=== PATIENT | male | born 1940 | race Caucasian/White ===

== ENCOUNTER 2018-12-28 19:14 | Inpatient (IN) | payer OTHER ==
[2018-12-28 19:45] VITALS: BMI 24.3
[2018-12-28] MEDS ORDERED: LOSARTAN POTASSIUM 50 MG TABLET (FP) PO ONE (20:24)
[2018-12-28] MEDS ORDERED: amLODIPine BESYLATE 5 MG TABLET (FP) PO ONE (20:24)
[2018-12-28] MEDS ORDERED: amLODIPine BESYLATE 5 MG TABLET (FP) ONE (20:38)
[2018-12-28] MEDS ORDERED: LOSARTAN POTASSIUM 50 MG TABLET (FP) ONE (20:39)
[2018-12-28 21:01] LABS: PH,URINE 7.5 (5.0-8.0); URINE APPEARANCE CLEAR; URINE BILIRUBIN NEGATIVE (NEGATIVE); URINE COLOR YELLOW; URINE GLUCOSE (UA) NEGATIVE (NEGATIVE); URINE KETONE TRACE (NEGATIVE); URINE LEUK ESTERASE NEGATIVE (NEGATIVE); URINE NITRITE NEGATIVE (NEGATIVE); URINE PROTEIN NEGATIVE (NEGATIVE); URINE UROBILINOGEN 0.2 mg/dL (0.2-1.0)
[2018-12-28 21:19] LABS: BASO % 1.1 % (0-2.0); EOS % 3.9 % (0-4.5); HEMATOCRIT 40.5 % (35.4-49); HEMOGLOBIN 13.5 GM/dL (11.7-16.9); LYMPH % 25.8 % (8-40); MCH 31.4 pg (25.7-33.7); MCHC 33.3 g/dl (32.0-35.9); MEAN CELL VOLUME 94.4 fl (80-96); MEAN PLT VOLUME 10.2 fl (7.5-11.1); MONO % 8.6 % (3.8-10.2); NEUT % 60.6 % (42.8-82.8); PLATELET COUNT 185 K/MM3 (134-434); RBC 4.29 M/mm3 (4.00-5.60); RDW 14.8 % (11.9-15.9); WHITE BLOOD COUNT 6.1 K/mm3 (4.0-10.0)
[2018-12-28 21:33] LABS: COCAINE, UR NEGATIVE ng/ml (CUTOFF=300); METHADONE, UR NEGATIVE ng/ml (CUTOFF=300); OPIATES, URI NEGATIVE ng/ml (CUTOFF=300); PHENCYCLIDINE,URINE NEGATIVE ng/ml (CUTOFF=25); URINE AMPHETAMINES NEGATIVE ng/ml (CUTOFF=500); URINE BARBITURATES NEGATIVE ng/ml (CUTOFF=200); URINE BENZODIAZEPINES NEGATIVE ng/ml (CUTOFF=200)
[2018-12-28 21:42] LABS: ALK PHOS 71 U/L (45-117); ANION GAP 5 MMOL/L (8-16); BILIRUBIN,TOTAL 0.5 mg/dL (0.2-1); BLOOD UREA NITROGEN 17.8 mg/dL (7-18); CHLORIDE 108 mmol/L (98-107); CO2 27 mmol/L (21-32); GLUCOSE,RANDOM 84 mg/dL (74-106); POTASSIUM 4.1 mmol/L (3.5-5.1); SGOT/AST 16 U/L (15-37); SGPT/ALT 16 U/L (13-61); SODIUM 141 mmol/L (136-145); TOT PROT 6.5 g/dl (6.4-8.2)
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
--- NOTE | 2018-12-28 22:54 | PDOC ---
Attending Attestation - Resident Resident Name: Nimco Livingston - ED Attending Attestation I have performed the following: I have examined & evaluated the patient, The case was reviewed & discussed with the resident, I agree w/resident's findings & plan, Exceptions are as noted - HPI HPI: 12/28/18 22:54 Agree with resident HPI - Physicial Exam PE: 12/28/18 22:54 Agree with resident exam - Medical Decision Making 12/28/18 22:55 5 days of bizarre behavior in context of very high BP, maintaining alertness and level of consciousness Consider cva, mass, tox, electrolyte derangement, infection, less likely primary psych f/u labs, ct dispo per clinical course admit for further evaluation
[2018-12-28] MEDS ORDERED: hydrALAZINE HCL 20 MG/ML VIAL IVPUSH ONE (23:12)
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
[2018-12-28] MEDS ORDERED: hydrALAZINE HCL 20 MG/ML VIAL ONE (23:36)
[2018-12-29 01:38] LABS: INR 1.07 (0.83-1.09); PROTHROMBIN TIME (PATIENT) 12.6 SEC (9.7-13.0)
[2018-12-29 01:40] LABS: ACTIVATED PTT 29.4 SECONDS (25.2-36.5)
[2018-12-29] MEDS: HEPARIN NA (PORCINE) 5,000 UNITS/ML 1ML VIAL SQ SCH ×3 (08:30→21:19)
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
[2018-12-29] MEDS: amLODIPine BESYLATE 5 MG TABLET (FP) PO SCH (10:58)
[2018-12-29] MEDS: LOSARTAN POTASSIUM 50 MG TABLET (FP) PO SCH (10:58)
[2018-12-29] MEDS: LEVOTHYROXINE NA 100 MCG TABLET (FP) PO SCH (10:58)
--- NOTE | 2018-12-29 13:03 | EKG ---
Test Reason : Blood Pressure : / mmHG Vent. Rate : 055 BPM Atrial Rate : 055 BPM P-R Int : 138 ms QRS Dur : 092 ms QT Int : 452 ms P-R-T Axes : 036 025 057 degrees QTc Int : 432 ms SINUS BRADYCARDIA WHEN COMPARED WITH ECG OF 21-JUL-2009 15:27, NO SIGNIFICANT CHANGE WAS FOUND Confirmed by NATACHA RASMUSSEN MD ([id number]) on 12/29/2018 1:03:03 PM Referred By: Confirmed By:NATACHA RASMUSSEN MD
[2018-12-29 13:40] LABS: CHOLESTEROL 177 mg/dL (50-200); HDL CHOLESTEROL 74 mg/dL (40-60); LDL CHOLESTEROL (ONLY SJRH) 91 mg/dL (5-100); TRIGLYCERIDES 56 mg/dL (0-150)
--- NOTE | 2018-12-29 15:49 | ECHO ---
Name: ROSIBEL, KIARRA Exam:Adult Echocardiogram Study Date: 12/29/2018 03:17 PM Age: 78 yrs Reason For Study: Hypertension Height: 70 in Weight: 170 lb BSA: 1.9 m2 MMode/2D Measurements & Calculations IVSd: 1.4 cm Ao root diam: 3.0 cm LVIDd: 4.2 cm LA dimension: 2.8 cm LVIDs: 3.2 cm ACS: 1.7 cm LVPWd: 1.1 cm EDV(Teich): 77.9 ml LVOT diam: 2.0 cm ESV(Teich): 40.6 ml RV S Adan: 18.2 cm/sec Doppler Measurements & Calculations MV E max adan: 66.6 cm/sec Ao V2 max: 138.5 cm/sec MV A max adan: 68.1 cm/sec Ao max P.7 mmHg MV E/A: 0.98 Ao V2 mean: 93.6 cm/sec MV dec time: 0.30 sec Ao mean P.9 mmHg Ao V2 VTI: 27.0 cm JENNIFER(I,D): 2.5 cm2 JENNIFER(V,D): 2.1 cm2 LV V1 max P.4 mmHg SV(LVOT): 68.5 ml LV V1 mean P.6 mmHg LV V1 max: 92.3 cm/sec LV V1 mean: 59.0 cm/sec LV V1 VTI: 22.0 cm TR max adan: 254.8 cm/sec Med Peak E' Adan: 5.0 cm/sec TR max P.3 mmHg Med E/e': 13.4 Lat Peak E' Adan: 7.7 cm/sec Lat E/e': 8.7 Left Ventricle There is mild concentric left ventricular hypertrophy. Left ventricular systolic function is normal. Ejection Fraction = 55-60%. The transmitral spectral Doppler flow pattern is suggestive of impaired LV relaxat ion. Right Ventricle The right ventricle is normal in size and function. Atria The left atrium is borderline dilated. Right atrial size is normal. Mitral Valve The mitral valve is normal in structure and function. There is no mitral valve stenosis. There is tra ce to mild mitral regurgitation. Tricuspid Valve The tricuspid valve is normal in structure and function. There is mild tricuspid regurgitation. Right ventricular systolic pressure is normal. Aortic Valve The aortic valve opens well. No hemodynamically significant valvular aortic stenosis. No aortic regur gitation is present. Pulmonic Valve The pulmonic valve is not well seen, but is grossly normal. There is no pulmonic valvular stenosis. T here is no pulmonic valvular regurgitation. Great Vessels The aortic root is normal size. Pericardium/Pleura There is no pericardial effusion. Interpretation Summary There is mild concentric left ventricular hypertrophy. The transmitral spectral Doppler flow pattern is suggestive of impaired LV relaxation. Left ventricular systolic function is normal. Ejection Fraction = 55-60%. The right ventricle is normal in size and function. The left atrium is borderline dilated. There is trace to mild mitral regurgitation. There is mild tricuspid regurgitation. Right ventricular systolic pressure is normal. There is no pericardial effusion. MD Ludwig *Larisa 12/29/2018 03:48 PM
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
[2018-12-30] MEDS: HEPARIN NA (PORCINE) 5,000 UNITS/ML 1ML VIAL SQ SCH ×3 (05:44→21:01)
[2018-12-30] MEDS: LEVOTHYROXINE NA 100 MCG TABLET (FP) PO SCH (06:03)
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
[2018-12-30 09:59] LABS: HEMATOCRIT 39.2 % (35.4-49); HEMOGLOBIN 13.2 GM/dL (11.7-16.9); MCH 31.8 pg (25.7-33.7); MCHC 33.7 g/dl (32.0-35.9); MEAN CELL VOLUME 94.4 fl (80-96); MEAN PLT VOLUME 9.8 fl (7.5-11.1); PLATELET COUNT 161 K/MM3 (134-434); RBC 4.15 M/mm3 (4.00-5.60); RDW 14.7 % (11.9-15.9)
[2018-12-30] MEDS: amLODIPine BESYLATE 5 MG TABLET (FP) PO SCH (10:02)
[2018-12-30] MEDS: LOSARTAN POTASSIUM 50 MG TABLET (FP) PO SCH (10:02)
[2018-12-30 10:27] LABS: ALBUMIN 3.5 g/dl (3.4-5.0); BILIRUBIN,TOTAL 0.6 mg/dL (0.2-1); BLOOD UREA NITROGEN 14.2 mg/dL (7-18); CALCIUM 8.7 mg/dL (8.5-10.1); CREATININE 0.9 mg/dL (0.55-1.3); MAGNESIUM 2.2 mg/dL (1.8-2.4); PHOSPHOROUS 3.7 mg/dL (2.5-4.9); POTASSIUM 3.8 mmol/L (3.5-5.1); TOT PROT 5.9 g/dl (6.4-8.2)
[2018-12-30] MEDS: MEMANTINE HCL 5 MG TABLET (UD) PO SCH (21:00)
[2018-12-31] MEDS: HEPARIN NA (PORCINE) 5,000 UNITS/ML 1ML VIAL SQ SCH ×3 (05:00→21:00)
[2018-12-31] MEDS: LEVOTHYROXINE NA 100 MCG TABLET (FP) PO SCH (06:16)
--- NOTE | 2018-12-31 09:58 | PN ---
Physical Exam: SUBJECTIVE: Patient seen and examined. He says he knows he is confused. Otherwise he has no complaints. OBJECTIVE: Vital Signs Period Temp Pulse Resp BP Sys/Peralta Pulse Ox Last 24 Hr 97.2 F-98.3 F 55-67 18-20 127-150/67-89 98 GENERAL: The patient is awake, alert, and fully oriented, in no acute distress. LUNGS: Breath sounds equal, clear to auscultation bilaterally, no wheezes, no crackles, no accessory muscle use. HEART: Regular rate and rhythm, S1, S2 without murmur, rub or gallop. ABDOMEN: Soft, nontender, nondistended, normoactive bowel sounds, no guarding, no rebound, no hepatosplenomegaly, no masses. EXTREMITIES: 2+ pulses, warm, well-perfused, no edema. Laboratory Results - last 24 hr 12/30/18 12/30/18 07:48 07:48 WBC 5.0 RBC 4.15 Hgb 13.2 Hct 39.2 MCV 94.4 MCH 31.8 MCHC 33.7 RDW 14.7 Plt Count 161 MPV 9.8 Sodium 142 Potassium 3.8 Chloride 109 H Carbon Dioxide 27 Anion Gap 6 L BUN 14.2 Creatinine 0.9 Est GFR (CKD-EPI)AfAm 95.15 Est GFR (CKD-EPI)NonAf 82.09 Random Glucose 74 Calcium 8.7 Phosphorus 3.7 Magnesium 2.2 Total Bilirubin 0.6 AST 12 L ALT 10 L Alkaline Phosphatase 68 Total Protein 5.9 L Albumin 3.5 Active Medications Generic Name Dose Route Start Last Admin Trade Name Freq PRN Reason Stop Dose Admin Amlodipine Besylate 5 mg 12/29/18 10:00 12/30/18 10:02 Norvasc - PO 5 mg DAILY SILVINO Administration Aspirin 81 mg 12/31/18 10:00 Asa - PO DAILY SILVINO Heparin Sodium (Porcine) 5,000 unit 12/29/18 06:00 12/31/18 05:00 Heparin - SQ Not Given TID SILVINO Levothyroxine Sodium 100 mcg 12/29/18 07:00 12/31/18 06:16 Synthroid - PO 100 mcg DAILY@0700 SILVINO Administration Losartan Potassium 50 mg 12/29/18 10:00 12/30/18 10:02 Cozaar - PO 50 mg DAILY SILVINO Administration Memantine 5 mg 12/30/18 22:00 12/30/18 21:00 Namenda - PO 5 mg BID SILVINO Administration ASSESSMENT/PLAN: This is a 78 year old man with a history of HTN, hypothyroidism who presented to the ED with altered mental status. 1. Dementia with paranoia - Continue Namenda - MRI of brain not done because of possibility he has metal in his body 2. s/p fall - Possible syncope - Carotid dopplers show bilateral small plaques with no hemodynamically significant stenosis - Echo ordered - EEG as outpatient 3. Hypertension - Continue Cozaar, Norvasc 4. Hypothyroidism - Continue Synthroid Visit type - Emergency Visit Emergency Visit: Yes ED Registration Date: 12/28/18 Care time: The patient presented to the Emergency Department on the above date and was hospitalized for further evaluation of their emergent condition. - New Patient This patient is new to me today: No - Critical Care Critical Care patient: No - Discharge Referral Referred to [facility] No
[2018-12-31] MEDS: LOSARTAN POTASSIUM 50 MG TABLET (FP) PO SCH (10:34)
[2018-12-31] MEDS: MEMANTINE HCL 5 MG TABLET (UD) PO SCH ×2 (10:34→21:01)
[2018-12-31] MEDS: ASPIRIN 81 MG CHEWABLE TABLETS PO SCH (10:34)
[2018-12-31] MEDS: amLODIPine BESYLATE 5 MG TABLET (FP) PO SCH (10:35)
[2019-01-01] MEDS: HEPARIN NA (PORCINE) 5,000 UNITS/ML 1ML VIAL SQ SCH ×2 (05:01→13:49)
[2019-01-01] MEDS: LEVOTHYROXINE NA 100 MCG TABLET (FP) PO SCH (05:59)
[2019-01-01 08:21] LABS: HEMATOCRIT 37.9 % (35.4-49); HEMOGLOBIN 12.6 GM/dL (11.7-16.9); MCH 31.6 pg (25.7-33.7); MCHC 33.2 g/dl (32.0-35.9); MEAN CELL VOLUME 95.3 fl (80-96); MEAN PLT VOLUME 9.9 fl (7.5-11.1); PLATELET COUNT 157 K/MM3 (134-434); RBC 3.98 M/mm3 (4.00-5.60); RDW 14.7 % (11.9-15.9); WHITE BLOOD COUNT 5.6 K/mm3 (4.0-10.0)
[2019-01-01 08:50] LABS: BLOOD UREA NITROGEN 14.9 mg/dL (7-18); CALCIUM 8.5 mg/dL (8.5-10.1); POTASSIUM 3.9 mmol/L (3.5-5.1)
[2019-01-01] MEDS: LOSARTAN POTASSIUM 50 MG TABLET (FP) PO SCH (09:07)
[2019-01-01] MEDS: amLODIPine BESYLATE 5 MG TABLET (FP) PO SCH (09:07)
[2019-01-01] MEDS: ASPIRIN 81 MG CHEWABLE TABLETS PO SCH (09:07)
[2019-01-01] MEDS: MEMANTINE HCL 5 MG TABLET (UD) PO SCH (09:07)
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
[2019-01-01 14:02] VITALS: BP 115/75; PULSE 68; TEMP 98.2
== END 2019-01-01 14:50 | disposition home or self-care (01) | DRG 884 ==
LOC: JER 19:14 → JERBED 22:57 → J7W 12-29 07:46
PROVIDERS: ADMIT Internal Medicine; ATTEND Internal Medicine
DX: F03.91 Unspecified dementia, unspecified severity, with behavioral disturbance (principal); G93.41 Metabolic encephalopathy; I10 Essential (primary) hypertension; E03.9 Hypothyroidism, unspecified; R00.1 Bradycardia, unspecified; W19.XXXA Unspecified fall, initial encounter; F22 Delusional disorders; R55 Syncope and collapse; W18.30XA Fall on same level, unspecified, initial encounter; Y92.098 Other place in other non-institutional residence as the place of occurrence of the external cause
CPT/HCPCS: 36415; 70450-TC; 71046-TC-FY; 80048; 80053; 80061; 80307; 81003; 82140; 82550; 82607; 82746; 83036; 83721; 83735; 84100; 84439; 84443; 84484; 85025; 85027; 85610; 85651; 85730; 86140; 86593; 87040; 87086; 93005; 93010; 93306-TC; 93880-TC; 97116-GP; 97161-GP; 99284-25; J1644

== ENCOUNTER 2022-05-06 14:08 | Inpatient (IN) | payer OTHER ==
[2022-05-06 14:26] VITALS: BMI 22.0
[2022-05-06 16:08] LABS: BASO % 0.7 % (0-2.0); EOS % 4.5 % (0-4.5); HEMATOCRIT 35.4 % (35.4-49); LYMPH % 12.8 % (8-40); MCH 32.1 pg (25.7-33.7); MCHC 33.9 g/dl (32.0-35.9); MEAN CELL VOLUME 94.8 fl (80-96); MEAN PLT VOLUME 9.1 fl (7.5-11.1); MONO % 8.1 % (3.8-10.2); NEUT % 73.9 % (42.8-82.8); PLATELET COUNT 215 10^3/uL (134-434); RBC 3.73 M/mm3 (4.00-5.60); WHITE BLOOD COUNT 7.2 K/mm3 (4.0-10.0)
[2022-05-06 16:52] LABS: CALCIUM 8.1 mg/dL (8.5-10.1)
[2022-05-06 16:53] LABS: BLOOD UREA NITROGEN 19.6 mg/dL (7-18)
[2022-05-06 16:58] LABS: BILIRUBIN,TOTAL 0.8 mg/dL (0.2-1); TOT PROT 6.3 g/dl (6.4-8.2)
[2022-05-06] MEDS ORDERED: PIPERACILLIN/TAZOB 4.5 GM 4.5 GM in DEXTROSE 5%-WATER 100 ML IVPB ONE (17:38)
[2022-05-06] MEDS ORDERED: VANCOMYCIN 1 GM in D5W (PRE-DOCKED) 1,000 MG/250 ML IVPB ONE (17:38)
[2022-05-06 17:46] LABS: ERYTHROCYTE SEDIMENTATION RATE 57 mm/hr (0-20)
[2022-05-06] MEDS ORDERED: PIPERACILLIN/TAZOB 4.5 GM 4.5 GM/100 ML BAG IVPB ONE (18:00)
[2022-05-06] MEDS ORDERED: VANCOMYCIN/WATER FOR INJ (PEG) 1,000 MG/200 ML BAG IVPB ONE (19:06)
[2022-05-06] MEDS ORDERED: VANCOMYCIN 1,000 MG in DEXTROSE 5%-WATER - 250 ML IVPB SCH (20:30)
[2022-05-06] MEDS: SODIUM CHLORIDE 1,000 ML IV SCH (20:35)
[2022-05-06] MEDS ORDERED: PIPERACILLIN/TAZOB 3.375 GM 3.375 GM in DEXTROSE 5%-WATER - 50 ML IVPB SCH (20:45)
[2022-05-06] MEDS ORDERED: ACETAMINOPHEN 1000 MG/100 ML BAG IVPB PRN (21:11)
[2022-05-07] MEDS: PIPERACILLIN/TAZOB 3.375 GM 3.375 GM in DEXTROSE 5%-WATER - 50 ML IVPB SCH ×3 (01:28→17:13)
[2022-05-07] MEDS: CARBIDOPA/LEVODOPA 25/100 TABLET (FP) PO SCH ×3 (06:19→17:13)
[2022-05-07] MEDS: LEVOTHYROXINE NA 100 MCG TABLET (FP) PO SCH (06:19)
[2022-05-07] MEDS ORDERED: VANCOMYCIN/WATER FOR INJ (PEG) 1,000 MG/200 ML BAG IVPB SCH (08:00)
[2022-05-07 09:06] LABS: HEMATOCRIT 34.3 % (35.4-49); HEMOGLOBIN 11.7 GM/dL (11.7-16.9); MCH 32.2 pg (25.7-33.7); MCHC 34.2 g/dl (32.0-35.9); MEAN CELL VOLUME 94.4 fl (80-96); MEAN PLT VOLUME 9.3 fl (7.5-11.1); PLATELET COUNT 211 10^3/uL (134-434); RBC 3.63 M/mm3 (4.00-5.60); RDW 13.6 % (11.9-15.9); WHITE BLOOD COUNT 7.2 K/mm3 (4.0-10.0)
[2022-05-07 09:19] LABS: CALCIUM 8.2 mg/dL (8.5-10.1)
[2022-05-07 09:20] LABS: BLOOD UREA NITROGEN 18.2 mg/dL (7-18); MAGNESIUM 2.3 mg/dL (1.8-2.4)
[2022-05-07 09:23] LABS: CREATININE 0.9 mg/dL (0.55-1.3); PHOSPHOROUS 2.7 mg/dL (2.5-4.9)
[2022-05-07] MEDS: ENOXAPARIN NA (PORCINE) 40 MG/0.4 ML DISP.SYRIN SQ SCH (09:23)
[2022-05-07] MEDS: LOSARTAN POTASSIUM 50 MG TABLET PO SCH (09:24)
[2022-05-07] MEDS: FUROSEMIDE 20 MG TABLET (FP) PO SCH (09:24)
[2022-05-07] MEDS ORDERED: PATIENT'S OWN MEDICATION (NON-FORMULARY) (Rivastigmine 1 EACH Patch.Td24) TD SCH (10:00)
[2022-05-07] MEDS ORDERED: MAGNESIUM HYDROX 2400MG/30ML ORAL SUSPENSION 30 ML CUP PO ONE (15:10)
[2022-05-07] MEDS ORDERED: PIPERACILLIN/TAZOBACTAM 3.375 GM VIAL IVPB ONE (17:17)
[2022-05-07] MEDS: DONEPEZIL HCL 10 MG TABLET (FP) PO SCH (21:22)
[2022-05-07] MEDS: SODIUM CHLORIDE 1,000 ML IV SCH (21:22)
[2022-05-08] MEDS: PIPERACILLIN/TAZOB 3.375 GM 3.375 GM in DEXTROSE 5%-WATER - 50 ML IVPB SCH ×3 (02:39→17:24)
[2022-05-08] MEDS: CARBIDOPA/LEVODOPA 25/100 TABLET (FP) PO SCH ×3 (06:12→17:23)
[2022-05-08] MEDS: LEVOTHYROXINE NA 100 MCG TABLET (FP) PO SCH (06:12)
[2022-05-08 08:49] LABS: HEMATOCRIT 33.2 % (35.4-49); HEMOGLOBIN 11.2 GM/dL (11.7-16.9); MCH 31.8 pg (25.7-33.7); MCHC 33.7 g/dl (32.0-35.9); MEAN CELL VOLUME 94.3 fl (80-96); MEAN PLT VOLUME 8.9 fl (7.5-11.1); PLATELET COUNT 193 10^3/uL (134-434); RBC 3.52 M/mm3 (4.00-5.60); RDW 13.9 % (11.9-15.9); WHITE BLOOD COUNT 6.2 K/mm3 (4.0-10.0)
[2022-05-08 09:07] LABS: CALCIUM 8.2 mg/dL (8.5-10.1)
[2022-05-08 09:08] LABS: BLOOD UREA NITROGEN 17.2 mg/dL (7-18); MAGNESIUM 2.4 mg/dL (1.8-2.4)
[2022-05-08 09:11] LABS: CREATININE 0.8 mg/dL (0.55-1.3); PHOSPHOROUS 3.1 mg/dL (2.5-4.9)
[2022-05-08] MEDS: ENOXAPARIN NA (PORCINE) 40 MG/0.4 ML DISP.SYRIN SQ SCH (10:31)
[2022-05-08] MEDS: LOSARTAN POTASSIUM 50 MG TABLET PO SCH (10:31)
[2022-05-08] MEDS: FUROSEMIDE 20 MG TABLET (FP) PO SCH (10:31)
[2022-05-08] MEDS: DONEPEZIL HCL 10 MG TABLET (FP) PO SCH (22:54)
[2022-05-09] MEDS: PIPERACILLIN/TAZOB 3.375 GM 3.375 GM in DEXTROSE 5%-WATER - 50 ML IVPB SCH ×3 (02:29→17:49)
[2022-05-09] MEDS: CARBIDOPA/LEVODOPA 25/100 TABLET (FP) PO SCH ×3 (06:21→17:48)
[2022-05-09] MEDS: LEVOTHYROXINE NA 100 MCG TABLET (FP) PO SCH (06:21)
[2022-05-09] MEDS: AMINO ACIDS/PROTEIN HYDROLYS 30 ML LIQUID.PKT PO SCH (08:32)
[2022-05-09 09:19] LABS: HEMATOCRIT 33.7 % (35.4-49); HEMOGLOBIN 11.5 GM/dL (11.7-16.9); MCH 32.1 pg (25.7-33.7); MCHC 34.1 g/dl (32.0-35.9); MEAN CELL VOLUME 94.3 fl (80-96); PLATELET COUNT 199 10^3/uL (134-434); RBC 3.57 M/mm3 (4.00-5.60); RDW 13.8 % (11.9-15.9); WHITE BLOOD COUNT 6.5 K/mm3 (4.0-10.0)
[2022-05-09 09:42] LABS: BLOOD UREA NITROGEN 15.5 mg/dL (7-18); CALCIUM 8.1 mg/dL (8.5-10.1); MAGNESIUM 2.2 mg/dL (1.8-2.4)
[2022-05-09 09:45] LABS: CREATININE 0.9 mg/dL (0.55-1.3); PHOSPHOROUS 3.4 mg/dL (2.5-4.9)
[2022-05-09] MEDS: FUROSEMIDE 20 MG TABLET (FP) PO SCH (10:11)
[2022-05-09] MEDS: ASCORBIC ACID 500 MG TABLET (FP) PO SCH (10:11)
[2022-05-09] MEDS: LOSARTAN POTASSIUM 50 MG TABLET PO SCH (10:11)
[2022-05-09] MEDS: ENOXAPARIN NA (PORCINE) 40 MG/0.4 ML DISP.SYRIN SQ SCH (10:12)
[2022-05-09] MEDS: MULTIVITAMINS (DAILY MVI) TABLET (FP) PO SCH (10:12)
[2022-05-09 13:20] LABS: URINE APPEARANCE CLEAR; URINE BILIRUBIN NEGATIVE (NEGATIVE); URINE COLOR YELLOW; URINE GLUCOSE (UA) NEGATIVE (NEGATIVE); URINE KETONE NEGATIVE (NEGATIVE); URINE LEUK ESTERASE NEGATIVE (NEGATIVE); URINE NITRITE NEGATIVE (NEGATIVE); URINE PROTEIN NEGATIVE (NEGATIVE)
[2022-05-09] MEDS: DONEPEZIL HCL 10 MG TABLET (FP) PO SCH (21:37)
[2022-05-10] MEDS: PIPERACILLIN/TAZOB 3.375 GM 3.375 GM in DEXTROSE 5%-WATER - 50 ML IVPB SCH ×3 (01:27→17:29)
[2022-05-10] MEDS: CARBIDOPA/LEVODOPA 25/100 TABLET (FP) PO SCH ×3 (06:38→16:33)
[2022-05-10] MEDS: LEVOTHYROXINE NA 100 MCG TABLET (FP) PO SCH (06:38)
[2022-05-10 08:40] LABS: HEMATOCRIT 34.6 % (35.4-49); MCH 32.5 pg (25.7-33.7); MCHC 34.8 g/dl (32.0-35.9); MEAN CELL VOLUME 93.4 fl (80-96); MEAN PLT VOLUME 8.8 fl (7.5-11.1); PLATELET COUNT 211 10^3/uL (134-434); RDW 13.9 % (11.9-15.9); WHITE BLOOD COUNT 6.2 K/mm3 (4.0-10.0)
[2022-05-10] MEDS: AMINO ACIDS/PROTEIN HYDROLYS 30 ML LIQUID.PKT PO SCH (08:50)
[2022-05-10 09:19] LABS: BLOOD UREA NITROGEN 16.4 mg/dL (7-18); CALCIUM 8.2 mg/dL (8.5-10.1); MAGNESIUM 2.3 mg/dL (1.8-2.4)
[2022-05-10 09:21] LABS: CREATININE 0.9 mg/dL (0.55-1.3)
[2022-05-10 09:24] LABS: PHOSPHOROUS 3.3 mg/dL (2.5-4.9)
[2022-05-10] MEDS: MULTIVITAMINS (DAILY MVI) TABLET (FP) PO SCH (10:10)
[2022-05-10] MEDS: ASCORBIC ACID 500 MG TABLET (FP) PO SCH (10:10)
[2022-05-10] MEDS: ENOXAPARIN NA (PORCINE) 40 MG/0.4 ML DISP.SYRIN SQ SCH (10:10)
[2022-05-10] MEDS: FUROSEMIDE 20 MG TABLET (FP) PO SCH (10:10)
[2022-05-10] MEDS: LOSARTAN POTASSIUM 50 MG TABLET PO SCH (10:10)
[2022-05-10] MEDS: DONEPEZIL HCL 10 MG TABLET (FP) PO SCH (21:04)
[2022-05-11] MEDS: PIPERACILLIN/TAZOB 3.375 GM 3.375 GM in DEXTROSE 5%-WATER - 50 ML IVPB SCH ×3 (02:42→17:06)
[2022-05-11] MEDS: LEVOTHYROXINE NA 100 MCG TABLET (FP) PO SCH (06:16)
[2022-05-11] MEDS: CARBIDOPA/LEVODOPA 25/100 TABLET (FP) PO SCH ×3 (06:16→17:06)
[2022-05-11] MEDS: AMINO ACIDS/PROTEIN HYDROLYS 30 ML LIQUID.PKT PO SCH (08:57)
[2022-05-11] MEDS: LOSARTAN POTASSIUM 50 MG TABLET PO SCH (09:25)
[2022-05-11] MEDS: MULTIVITAMINS (DAILY MVI) TABLET (FP) PO SCH (09:25)
[2022-05-11] MEDS: ASCORBIC ACID 500 MG TABLET (FP) PO SCH (09:25)
[2022-05-11] MEDS: FUROSEMIDE 20 MG TABLET (FP) PO SCH (09:26)
[2022-05-11] MEDS: ENOXAPARIN NA (PORCINE) 40 MG/0.4 ML DISP.SYRIN SQ SCH (09:26)
[2022-05-11 09:47] LABS: HEMATOCRIT 37.1 % (35.4-49); HEMOGLOBIN 12.6 GM/dL (11.7-16.9); MCH 32.1 pg (25.7-33.7); MCHC 34.1 g/dl (32.0-35.9); MEAN CELL VOLUME 94.1 fl (80-96); MEAN PLT VOLUME 8.8 fl (7.5-11.1); PLATELET COUNT 226 10^3/uL (134-434); RBC 3.94 M/mm3 (4.00-5.60); RDW 13.9 % (11.9-15.9)
[2022-05-11 10:04] LABS: CALCIUM 8.7 mg/dL (8.5-10.1)
[2022-05-11 10:05] LABS: ALBUMIN 2.8 g/dl (3.4-5.0); BLOOD UREA NITROGEN 19.2 mg/dL (7-18); MAGNESIUM 2.4 mg/dL (1.8-2.4)
[2022-05-11 10:08] LABS: CREATININE 0.9 mg/dL (0.55-1.3)
[2022-05-11 10:09] LABS: BILIRUBIN,TOTAL 0.3 mg/dL (0.2-1)
[2022-05-11] MEDS: DONEPEZIL HCL 10 MG TABLET (FP) PO SCH (22:09)
[2022-05-12] MEDS: PIPERACILLIN/TAZOB 3.375 GM 3.375 GM in DEXTROSE 5%-WATER - 50 ML IVPB SCH ×2 (01:53→09:18)
[2022-05-12] MEDS: CARBIDOPA/LEVODOPA 25/100 TABLET (FP) PO SCH ×3 (06:43→17:51)
[2022-05-12] MEDS: LEVOTHYROXINE NA 100 MCG TABLET (FP) PO SCH (06:43)
[2022-05-12] MEDS: AMINO ACIDS/PROTEIN HYDROLYS 30 ML LIQUID.PKT PO SCH (09:19)
[2022-05-12] MEDS: ENOXAPARIN NA (PORCINE) 40 MG/0.4 ML DISP.SYRIN SQ SCH (09:19)
[2022-05-12] MEDS: ASCORBIC ACID 500 MG TABLET (FP) PO SCH (09:20)
[2022-05-12] MEDS: MULTIVITAMINS (DAILY MVI) TABLET (FP) PO SCH (09:20)
[2022-05-12] MEDS: FUROSEMIDE 20 MG TABLET (FP) PO SCH (09:20)
[2022-05-12] MEDS: LOSARTAN POTASSIUM 50 MG TABLET PO SCH (09:20)
[2022-05-12 09:38] LABS: HEMATOCRIT 36.7 % (35.4-49); HEMOGLOBIN 12.5 GM/dL (11.7-16.9); MCHC 34.1 g/dl (32.0-35.9); MEAN CELL VOLUME 93.9 fl (80-96); MEAN PLT VOLUME 9.1 fl (7.5-11.1); PLATELET COUNT 227 10^3/uL (134-434); RDW 13.8 % (11.9-15.9); WHITE BLOOD COUNT 6.7 K/mm3 (4.0-10.0)
[2022-05-12 09:58] LABS: CALCIUM 8.5 mg/dL (8.5-10.1)
[2022-05-12 09:59] LABS: BLOOD UREA NITROGEN 16.5 mg/dL (7-18); MAGNESIUM 2.2 mg/dL (1.8-2.4)
[2022-05-12 10:01] LABS: PHOSPHOROUS 3.2 mg/dL (2.5-4.9)
[2022-05-12 10:02] LABS: CREATININE 1.1 mg/dL (0.55-1.3)
[2022-05-12] MEDS: DONEPEZIL HCL 10 MG TABLET (FP) PO SCH (22:10)
[2022-05-13] MEDS: LEVOTHYROXINE NA 100 MCG TABLET (FP) PO SCH (06:29)
[2022-05-13] MEDS: CARBIDOPA/LEVODOPA 25/100 TABLET (FP) PO SCH ×3 (06:29→17:48)
[2022-05-13] MEDS: FUROSEMIDE 20 MG TABLET (FP) PO SCH (09:51)
[2022-05-13] MEDS: ASCORBIC ACID 500 MG TABLET (FP) PO SCH (09:51)
[2022-05-13] MEDS: AMINO ACIDS/PROTEIN HYDROLYS 30 ML LIQUID.PKT PO SCH (09:51)
[2022-05-13] MEDS: ENOXAPARIN NA (PORCINE) 40 MG/0.4 ML DISP.SYRIN SQ SCH (09:51)
[2022-05-13] MEDS: LOSARTAN POTASSIUM 50 MG TABLET PO SCH (09:52)
[2022-05-13] MEDS: MULTIVITAMINS (DAILY MVI) TABLET (FP) PO SCH (09:52)
[2022-05-13 11:04] VITALS: RESP 18
[2022-05-13 17:59] VITALS: BP 145/84; PULSE 51; TEMP 98.3
== END 2022-05-13 19:30 | DRG 603 ==
LOC: JER 14:08 → JERBED 18:24 → J6S 21:14 → J7W 05-12 19:50
PROVIDERS: ADMIT Internal Medicine; ATTEND Internal Medicine
DX: L03.115 Cellulitis of right lower limb (principal); L03.116 Cellulitis of left lower limb; I10 Essential (primary) hypertension; E03.9 Hypothyroidism, unspecified; G20 Parkinson's disease; M51.34 Other intervertebral disc degeneration, thoracic region; R00.1 Bradycardia, unspecified; R73.9 Hyperglycemia, unspecified; M71.21 Synovial cyst of popliteal space [Baker], right knee; M85.88 Other specified disorders of bone density and structure, other site; B95.61 Methicillin susceptible Staphylococcus aureus infection as the cause of diseases classified elsewhere; F03.90 Unspecified dementia, unspecified severity, without behavioral disturbance, psychotic disturbance, mood disturbance, and anxiety
CPT/HCPCS: 0241U-QW; 36415; 73630-TC-LT; 73630-TC-RT-FY; 73700-TC-RT; 80048; 80053; 81003; 83036; 83605; 83735; 83880; 84100; 84439; 84443; 85025; 85027; 85651; 86140; 87040; 87070; 87081; 87186; 87205; 93005; 93010; 93306-TC; 93970-TC; 97116-GP; 97162-GP; 99285-25

== ENCOUNTER 2022-05-28 14:08 | Emergency (ER) | payer OTHER ==
[2022-05-28 14:36] VITALS: BP 141/77; PULSE 56; RESP 18; TEMP 98.2; BMI 22.8
[2022-05-28] MEDS ORDERED: BACITRACIN 0.9 GM PACKET TP ONE (14:45)
[2022-05-28] MEDS ORDERED: BACITRACIN ZINC 15 GM TUBE TOPICAL OINTMENT ONE (14:48)
[2022-05-28] MEDS ORDERED: RAPID SEQUENCE INTUBATION KIT NR ONE (15:52)
== END 2022-05-29 00:02 ==
LOC: JER 14:08
DX: Z48.00 Encounter for change or removal of nonsurgical wound dressing (principal)
CPT/HCPCS: 99281-25

== ENCOUNTER 2022-11-21 21:10 | Emergency (ER) | payer OTHER ==
[2022-11-21 21:16] VITALS: BP 146/84; PULSE 58; RESP 16; TEMP 97.8; BMI 17.4
[2022-11-21] MEDS ORDERED: METOCLOPRAMIDE HCL INJECTION 10 MG/2 ML VIAL IVPUSH ONE (22:05)
[2022-11-21] MEDS ORDERED: SODIUM CHLORIDE 0.9% 500 ML INFUS.BAG IV ONE (22:07)
[2022-11-21] MEDS ORDERED: METOCLOPRAMIDE HCL INJECTION 10 MG/2 ML VIAL ONE (22:23)
[2022-11-21 22:31] LABS: BASO % 1.2 % (0-2.0); EOS % 4.9 % (0-4.5); HEMATOCRIT 40.7 % (35.4-49); HEMOGLOBIN 13.6 GM/dL (11.7-16.9); LYMPH % 20.8 % (8-40); MCHC 33.5 g/dl (32.0-35.9); MEAN CELL VOLUME 92.8 fl (80-96); MEAN PLT VOLUME 9.4 fl (7.5-11.1); MONO % 9.1 % (3.8-10.2); PLATELET COUNT 194 10^3/uL (134-434); RBC 4.38 M/mm3 (4.00-5.60); WHITE BLOOD COUNT 5.6 K/mm3 (4.0-10.0)
[2022-11-21 22:41] LABS: INR 1.03 (0.83-1.09)
[2022-11-21 22:43] LABS: ACTIVATED PTT 28.2 SECONDS (25.2-36.5)
[2022-11-21 22:56] LABS: POTASSIUM 3.9 mmol/L (3.5-5.1)
[2022-11-21 22:58] LABS: BLOOD UREA NITROGEN 17.2 mg/dL (7-18); CALCIUM 8.6 mg/dL (8.5-10.1); MAGNESIUM 2.3 mg/dL (1.8-2.4)
[2022-11-21 22:59] LABS: ALBUMIN 3.6 g/dl (3.4-5.0)
[2022-11-21] MEDS ORDERED: ACETAMINOPHEN/CAFFEINE/BUTALBITAL 1 TAB PO ONE (22:59)
[2022-11-21 23:03] LABS: BILIRUBIN,TOTAL 0.7 mg/dL (0.2-1); TOT PROT 6.5 g/dl (6.4-8.2)
[2022-11-21] MEDS ORDERED: ACETAMINOPHEN/CAFFEINE/BUTALBITAL 1 TAB ONE (23:20)
[2022-11-22] MEDS ORDERED: LACTULOSE 20 GM/30 ML UDC (FOR ORAL USE ONLY) PO ONE (00:42)
[2022-11-22] MEDS ORDERED: FOLIC ACID INJECTION - 1 MG, THIAMINE HCL 100 MG, MULTIVIT INJECTION ADULT 10 ML in SOD... IVPB ONE (00:43)
[2022-11-22] MEDS ORDERED: POLYETHYLENE GLYCOL (HEALTHYLAX) 3350 17 GM PACKET PO SCH (00:45)
[2022-11-22] MEDS ORDERED: POLYETHYLENE GLYCOL (HEALTHYLAX) 3350 17 GM PACKET PO ONE (00:45)
[2022-11-22] MEDS ORDERED: LACTULOSE 20 GM/30 ML UDC (FOR ORAL USE ONLY) ONE (00:45)
[2022-11-22 00:57] LABS: PH,URINE 7.5 (5.0-8.0); URINE APPEARANCE CLEAR; URINE BILIRUBIN NEGATIVE (NEGATIVE); URINE COLOR YELLOW; URINE GLUCOSE (UA) NEGATIVE (NEGATIVE); URINE KETONE 1+ (NEGATIVE); URINE LEUK ESTERASE NEGATIVE (NEGATIVE); URINE NITRITE NEGATIVE (NEGATIVE); URINE PROTEIN NEGATIVE (NEGATIVE); URINE UROBILINOGEN 0.2 mg/dL (0.2-1.0)
== END 2022-11-22 04:02 | disposition home or self-care (01) ==
LOC: JER 21:10
PROC: 3E033GC Introduction of Other Therapeutic Substance into Peripheral Vein, Percutaneous Approach (ICD-10-PCS; 2022-11-21)
PROC: 3E033GC Introduction of Other Therapeutic Substance into Peripheral Vein, Percutaneous Approach (ICD-10-PCS; principal; 2022-11-22)
PROC: 3E033GC Introduction of Other Therapeutic Substance into Peripheral Vein, Percutaneous Approach (ICD-10-PCS; 2022-11-22)
PROC: 3E033GC Introduction of Other Therapeutic Substance into Peripheral Vein, Percutaneous Approach (ICD-10-PCS; 2022-11-22)
PROC: 3E033GC Introduction of Other Therapeutic Substance into Peripheral Vein, Percutaneous Approach (ICD-10-PCS; 2022-11-22)
PROC: 3E033GC Introduction of Other Therapeutic Substance into Peripheral Vein, Percutaneous Approach (ICD-10-PCS; 2022-11-22)
PROC: 3E033GC Introduction of Other Therapeutic Substance into Peripheral Vein, Percutaneous Approach (ICD-10-PCS; 2022-11-22)
PROC: 3E033GC Introduction of Other Therapeutic Substance into Peripheral Vein, Percutaneous Approach (ICD-10-PCS; 2022-11-22)
PROC: 3E033GC Introduction of Other Therapeutic Substance into Peripheral Vein, Percutaneous Approach (ICD-10-PCS; 2022-11-22)
DX: R51.9 Headache, unspecified (principal); K59.00 Constipation, unspecified; Z20.822 Contact with and (suspected) exposure to COVID-19
CPT/HCPCS: 0241U-QW; 36415; 70450-TC; 80053; 81003; 83735; 84484; 85025; 85610; 85730; 87086; 93005; 93010; 99285-25

== ENCOUNTER 2023-07-10 15:37 | Observation (INO) | payer OTHER ==
[2023-07-10 16:49] VITALS: BMI 20.7
[2023-07-10 17:10] LABS: EOS % 6.6 % (0-4.5); HEMATOCRIT 37.6 % (35.4-49); HEMOGLOBIN 12.6 GM/dL (11.7-16.9); LYMPH % 12.9 % (8-40); MCH 32.1 pg (25.7-33.7); MCHC 33.5 g/dl (32.0-35.9); MEAN PLT VOLUME 10.1 fl (7.5-11.1); MONO % 8.3 % (3.8-10.2); NEUT % 71.2 % (42.8-82.8); PLATELET COUNT 151 10^3/uL (134-434); RBC 3.92 M/mm3 (4.00-5.60); WHITE BLOOD COUNT 6.1 K/mm3 (4.0-10.0)
[2023-07-10 17:23] LABS: POTASSIUM 4.4 mmol/L (3.5-5.1)
[2023-07-10 17:26] LABS: CALCIUM 8.6 mg/dL (8.5-10.1)
[2023-07-10 17:27] LABS: ALBUMIN 3.5 g/dl (3.4-5.0); BLOOD UREA NITROGEN 25.5 mg/dL (7-18); MAGNESIUM 2.4 mg/dL (1.8-2.4)
[2023-07-10 17:31] LABS: BILIRUBIN,TOTAL 0.6 mg/dL (0.2-1)
[2023-07-10 17:32] LABS: TOT PROT 5.9 g/dl (6.4-8.2)
[2023-07-10 17:46] LABS: URINE APPEARANCE TURBID; URINE BILIRUBIN NEGATIVE (NEGATIVE); URINE COLOR YELLOW; URINE GLUCOSE (UA) NEGATIVE (NEGATIVE); URINE KETONE NEGATIVE (NEGATIVE); URINE LEUK ESTERASE NEGATIVE (NEGATIVE); URINE NITRITE NEGATIVE (NEGATIVE); URINE PROTEIN NEGATIVE (NEGATIVE); URINE UROBILINOGEN 0.2 mg/dL (0.2-1.0)
[2023-07-11] MEDS: BENZOCAINE/MENTH/CETYLPYRD CL 1 EACH LOZENGE MM PRN (03:26)
[2023-07-11 06:56] VITALS: RESP 18
[2023-07-11] MEDS: LEVOTHYROXINE NA 125 MCG TABLET (FP) PO SCH (08:24)
[2023-07-11 08:32] LABS: BASO % 0.6 % (0-2.0); EOS % 2.6 % (0-4.5); HEMATOCRIT 35.7 % (35.4-49); HEMOGLOBIN 12.2 GM/dL (11.7-16.9); MCH 32.6 pg (25.7-33.7); MCHC 34.1 g/dl (32.0-35.9); MEAN CELL VOLUME 95.6 fl (80-96); MEAN PLT VOLUME 9.3 fl (7.5-11.1); MONO % 6.4 % (3.8-10.2); NEUT % 84.4 % (42.8-82.8); PLATELET COUNT 128 10^3/uL (134-434); RBC 3.73 M/mm3 (4.00-5.60); WHITE BLOOD COUNT 8.4 K/mm3 (4.0-10.0)
[2023-07-11 08:50] LABS: MAGNESIUM 2.1 mg/dL (1.8-2.4)
[2023-07-11 08:52] LABS: PHOSPHOROUS 2.5 mg/dL (2.5-4.9); URIC ACID 4.7 mg/dL (2.6-7.2)
[2023-07-11] MEDS: CARBIDOPA/LEVODOPA 25/100 TABLET (FP) PO SCH (09:05)
[2023-07-11 09:23] LABS: POTASSIUM 3.8 mmol/L (3.5-5.1)
[2023-07-11 09:25] LABS: ALBUMIN 3.3 g/dl (3.4-5.0); BLOOD UREA NITROGEN 19.2 mg/dL (7-18); CALCIUM 8.3 mg/dL (8.5-10.1)
[2023-07-11 09:29] LABS: CREATININE 0.8 mg/dL (0.55-1.3)
[2023-07-11 09:30] LABS: BILIRUBIN,TOTAL 0.6 mg/dL (0.2-1); TOT PROT 5.5 g/dl (6.4-8.2)
[2023-07-11] MEDS: LOSARTAN POTASSIUM 50 MG TABLET PO SCH (12:42)
[2023-07-11] MEDS: ENOXAPARIN NA (PORCINE) 40 MG/0.4 ML DISP.SYRIN SQ SCH (12:42)
[2023-07-11] MEDS: FUROSEMIDE 20 MG TABLET (FP) PO SCH (17:36)
[2023-07-11] MEDS: RIVASTIGMINE 4.6 MG/24 HOURS TRANSDERMAL PATCH TD SCH (17:37)
[2023-07-11] MEDS: hydrALAZINE HCL 50 MG TABLET (FP) PO SCH (17:37)
[2023-07-11] MEDS: DONEPEZIL HCL 10 MG TABLET (FP) PO SCH (21:24)
[2023-07-12] MEDS: LEVOTHYROXINE NA 125 MCG TABLET (FP) PO SCH (06:00)
[2023-07-12 10:22] LABS: HEMOGLOBIN 12.5 GM/dL (11.7-16.9); MCH 32.1 pg (25.7-33.7); MCHC 32.9 g/dl (32.0-35.9); MEAN CELL VOLUME 97.4 fl (80-96); MEAN PLT VOLUME 10.1 fl (7.5-11.1); PLATELET COUNT 130 10^3/uL (134-434); WHITE BLOOD COUNT 8.5 K/mm3 (4.0-10.0)
[2023-07-12 10:41] LABS: CHLORIDE 106 mmol/L (98-107); POTASSIUM 3.5 mmol/L (3.5-5.1); SODIUM 139 mmol/L (136-145)
[2023-07-12 10:45] LABS: ALBUMIN 2.9 g/dl (3.4-5.0); ANION GAP 5 mmol/L (4-13); BLOOD UREA NITROGEN 25.5 mg/dL (7-18); CO2 28 mmol/L (21-32); GLUCOSE,RANDOM 121 mg/dL (74-106); MAGNESIUM 2.1 mg/dL (1.8-2.4)
[2023-07-12 10:48] LABS: CREATININE 1.1 mg/dL (0.55-1.3); PHOSPHOROUS 2.1 mg/dL (2.5-4.9); SGOT/AST 24 U/L (15-37)
[2023-07-12 10:49] LABS: BILIRUBIN,TOTAL 0.9 mg/dL (0.2-1); TOT PROT 5.3 g/dl (6.4-8.2)
[2023-07-12 10:51] LABS: ALK PHOS 52 U/L (45-117)
[2023-07-12 10:52] LABS: SGPT/ALT < 6 U/L (13-61)
[2023-07-12 15:22] LABS: CHOLESTEROL 139 mg/dL (50-200)
[2023-07-12 15:24] LABS: LDL CHOLESTEROL (ONLY SJRH) 45 mg/dL (5-100)
[2023-07-12 15:25] LABS: HDL CHOLESTEROL 87 mg/dL (40-60)
[2023-07-13] MEDS: POLYETHYLENE GLYCOL (HEALTHYLAX) 3350 17 GM PACKET PO SCH (11:23)
[2023-07-14 15:12] VITALS: BP 117/70; PULSE 62; TEMP 98.3
== END 2023-07-14 15:55 | disposition home or self-care (01) ==
LOC: JER 15:37 → INTOOBSV 20:23 → JERBED 20:23 → J6S 07-11 04:05
PROVIDERS: ADMIT Internal Medicine; ATTEND Internal Medicine
PROC: 3E023GC Introduction of Other Therapeutic Substance into Muscle, Percutaneous Approach (ICD-10-PCS; principal; 2023-07-10)
DX: F02.80 Dementia in other diseases classified elsewhere, unspecified severity, without behavioral disturbance, psychotic disturbance, mood disturbance, and anxiety (principal); R53.1 Weakness; Z86.73 Personal history of transient ischemic attack (TIA), and cerebral infarction without residual deficits; G20.A1 Parkinson's disease without dyskinesia, without mention of fluctuations; R00.1 Bradycardia, unspecified; E78.5 Hyperlipidemia, unspecified; I10 Essential (primary) hypertension; Z74.1 Need for assistance with personal care; E03.9 Hypothyroidism, unspecified; W18.39XA Other fall on same level, initial encounter; Y93.89 Activity, other specified; Y92.89 Other specified places as the place of occurrence of the external cause
CPT/HCPCS: 0241U-QW; 36415; 70450-TC; 71045-TC-FY; 73610-TC-LT-FY; 73610-TC-RT-FY; 73630-TC-LT; 73630-TC-RT-FY; 80053; 80061; 80307; 81003; 82306; 82553; 82607; 82746; 83735; 84100; 84439; 84443; 84481; 84484; 84550; 85025; 85027; 86780; 87086; 93005; 93010; 96372; 97116-GP; 97162-GP; 99285-25; G0378

== ENCOUNTER 2023-11-14 16:58 | Inpatient (IN) | payer OTHER ==
[2023-11-14] MEDS ORDERED: AZITHROMYCIN 500 MG VIAL IVPB ONE (17:51)
[2023-11-14] MEDS ORDERED: cefTRIAXone SODIUM 1 GM VIAL ONE (17:51)
[2023-11-14 18:13] LABS: HEMATOCRIT 44.2 % (35.4-49); HEMOGLOBIN 14.2 G/dL (11.7-16.9); MCHC 32.1 g/dl (32.0-35.9); MEAN CELL VOLUME 96.8 fl (80-96); MEAN PLT VOLUME 10.5 fl (7.5-11.1); PLATELET COUNT 108.3 10^3/uL (134-434); RBC 4.57 10^6/uL (4.00-5.60); WHITE BLOOD COUNT 7.5 10^3/uL (4.0-10.8)
[2023-11-14] MEDS: CEFTRIAXONE 1 GM in DEXTROSE 5%-WATER - 100 ML IVPB ONE (18:16)
[2023-11-14] MEDS: SODIUM CHLORIDE 0.9% 1000 ML INFUS.BAG IV SCH (18:17)
[2023-11-14 18:19] LABS: PROTHROMBIN TIME (PATIENT) 11.4 SEC (9.7-13.0)
[2023-11-14 18:22] LABS: ACTIVATED PTT 34.2 SECONDS (25.2-36.5)
[2023-11-14 18:30] LABS: ALBUMIN 4.5 g/dl (3.4-5.0); BILIRUBIN,TOTAL 0.8 mg/dl (0.2-1); CALCIUM 9.1 mg/dl (8.5-10.1); CREATININE 1.1 mg/dl (0.6-1.3); POTASSIUM 4.1 mmol/L (3.5-5.1); TOT PROT 6.7 g/dl (6.4-8.2)
[2023-11-14 19:01] LABS: VENOUS BASE EXCESS 2.9 mmol/L (-2-2); VENOUS O2 SATURATION 28.1 % (70-80); VENOUS PCO2 49.1 mmHg (38-52); VENOUS PH 7.391 (7.310-7.410)
[2023-11-14] MEDS: AZITHROMYCIN IVPB 500 MG in DEXTROSE 5%-WATER - 250 ML IVPB ONE (19:12)
[2023-11-14 19:18] LABS: PLATELET ESTIMATE SLT DECREASE
[2023-11-14] MEDS ORDERED: ACETAMINOPHEN INJECTION 100 ML ONE (20:16)
[2023-11-14] MEDS: ACETAMINOPHEN 1000 MG/100 ML BAG IVPB ONE (20:58)
[2023-11-14] MEDS ORDERED: DEXAMETHASONE SOD PHOSPHATE 10 MG/1 ML VIAL ONE (22:53)
[2023-11-14] MEDS: REMDESIVIR 200 MG in SODIUM CHLORIDE 250 ML IVPB ONE (23:18)
[2023-11-14] MEDS: DEXAMETHASONE SOD PHOSPHATE 10 MG/1 ML VIAL IVPUSH ONE (23:18)
[2023-11-15] MEDS: CARBIDOPA/LEVODOPA 25/100 TABLET (FP) PO SCH (00:32)
[2023-11-15] MEDS: IBUPROFEN 800 MG/8 ML IJ IVPB ONE (00:39)
[2023-11-15 03:49] VITALS: BMI 25.0
[2023-11-15] MEDS: LEVOTHYROXINE 112 MCG, LEVOTHYROXINE 25 MCG PO SCH (06:41)
[2023-11-15] MEDS ORDERED: LEVOTHYROXINE NA 125 MCG TABLET (FP) PO SCH ×2 (07:00)
[2023-11-15] MEDS: SODIUM CHLORIDE 0.9% 500 ML INFUS.BAG IV ONE (08:48)
[2023-11-15 09:04] LABS: CALCIUM 8.4 mg/dl (8.5-10.1); CREATININE 0.9 mg/dl (0.6-1.3); MAGNESIUM 2.1 mg/dL (1.8-2.4); POTASSIUM 3.4 mmol/L (3.5-5.1)
[2023-11-15] MEDS: HEPARIN NA (PORCINE) 5,000 UNITS/ML 1ML VIAL SQ SCH (11:01)
[2023-11-15] MEDS: DEXAMETHASONE SOD PHOSPHATE 10 MG/1 ML VIAL IVPUSH SCH (11:01)
[2023-11-15] MEDS: hydrALAZINE HCL 10 MG TABLET PO SCH (11:02)
[2023-11-15] MEDS: FUROSEMIDE 20 MG TABLET (FP) PO SCH (11:02)
[2023-11-15] MEDS: LOSARTAN POTASSIUM 50 MG TABLET PO SCH (11:02)
[2023-11-15 11:27] LABS: HEMATOCRIT 41.4 % (35.4-49); HEMOGLOBIN 13.3 G/dL (11.7-16.9); MCH 31.2 pg (25.7-33.7); MCHC 32.1 g/dl (32.0-35.9); MEAN CELL VOLUME 97.1 fl (80-96); MEAN PLT VOLUME 11.2 fl (7.5-11.1); PLATELET COUNT 99.5 10^3/uL (134-434); RBC 4.26 10^6/uL (4.00-5.60); RDW 14.9 % (11.9-15.9); WHITE BLOOD COUNT 9.6 10^3/uL (4.0-10.8)
[2023-11-15 13:16] LABS: PLATELET ESTIMATE ADEQUATE
[2023-11-15] MEDS: CEFTRIAXONE 1 GM in DEXTROSE 5%-WATER - 50 ML IVPB SCH (14:25)
[2023-11-15] MEDS: POTASSIUM CHLORIDE ORAL LIQUID 20 MEQ/15 ML PO ONE (17:25)
[2023-11-15] MEDS: REMDESIVIR 100 MG in SODIUM CHLORIDE 250 ML IVPB SCH (17:25)
[2023-11-15] MEDS: SODIUM CHLORIDE 0.9% 1000 ML INFUS.BAG IV ONE (17:32)
[2023-11-15] MEDS: ACETAMINOPHEN 325 MG TABLET (FP) PO PRN (21:27)
[2023-11-15] MEDS: DONEPEZIL HCL 10 MG TABLET (FP) PO SCH (21:27)
[2023-11-15] MEDS: amLODIPine BESYLATE 5 MG TABLET (FP) PO ONE (22:47)
[2023-11-16] MEDS ORDERED: BENZOCAINE/MENTH/CETYLPYRD CL 1 EACH LOZENGE MM PRN (00:14)
[2023-11-16 01:17] VITALS: RESP 18
[2023-11-16 08:46] LABS: ALBUMIN 3.5 g/dl (3.4-5.0); BILIRUBIN,TOTAL 0.4 mg/dl (0.2-1); CALCIUM 8.2 mg/dl (8.5-10.1); CREATININE 0.7 mg/dl (0.6-1.3); POTASSIUM 4.2 mmol/L (3.5-5.1); TOT PROT 5.1 g/dl (6.4-8.2)
[2023-11-16 09:20] LABS: HEMATOCRIT 38.9 % (35.4-49); HEMOGLOBIN 12.5 G/dL (11.7-16.9); MCH 31.3 pg (25.7-33.7); MCHC 32.1 g/dl (32.0-35.9); MEAN CELL VOLUME 97.2 fl (80-96); MEAN PLT VOLUME 11.4 fl (7.5-11.1); PLATELET COUNT 92.4 10^3/uL (134-434); RDW 14.5 % (11.9-15.9); WHITE BLOOD COUNT 13.5 10^3/uL (4.0-10.8)
[2023-11-16 11:18] LABS: ANISOCYTOSIS 2+; OVALOCYTE 1+; PLATELET ESTIMATE DECREASED; TARGET CELLS 2+; TEAR DROP CELLS 1+
[2023-11-16] MEDS ORDERED: BENZOCAINE/MENTHOL 1 EACH LOZENGE MM PRN (14:57)
[2023-11-17 09:04] VITALS: BP 140/82; PULSE 87; TEMP 97.5
== END 2023-11-17 13:57 | disposition home or self-care (01) | DRG 179 ==
LOC: FER 16:58 → FM/S 22:54 → UNDOADMOB 23:38 → FM/S 23:38 → OBSVTOIN 11-15 11:10
PROVIDERS: ADMIT Internal Medicine
PROC: XW033E5 Introduction of Remdesivir Anti-infective into Peripheral Vein, Percutaneous Approach, New Technology Group 5 (ICD-10-PCS; principal; 2023-11-14)
DX: U07.1 COVID-19 (principal); I10 Essential (primary) hypertension; E03.9 Hypothyroidism, unspecified; E78.5 Hyperlipidemia, unspecified; G20.A1 Parkinson's disease without dyskinesia, without mention of fluctuations; F03.90 Unspecified dementia, unspecified severity, without behavioral disturbance, psychotic disturbance, mood disturbance, and anxiety; J98.4 Other disorders of lung; D49.1 Neoplasm of unspecified behavior of respiratory system; R53.1 Weakness; R09.02 Hypoxemia; Z86.73 Personal history of transient ischemic attack (TIA), and cerebral infarction without residual deficits
CPT/HCPCS: 0241U-QW; 36415; 71045-TC-FY; 71046-TC-FY; 71250-TC; 80048; 80053; 81003; 81015; 82728; 82803; 83605; 83615; 83735; 85025; 85027; 85379; 85610; 85730; 86140; 87040; 87070; 87086; 87205; 93005; 97116-GP; 97162-GP; 99285-25; G0378; J0131; J0248; J1100; J1644

== ENCOUNTER 2023-11-21 15:01 | Inpatient (IN) | payer OTHER ==
[2023-11-21 15:18] VITALS: BMI 21.4
[2023-11-21] MEDS: ACETAMINOPHEN 325 MG TABLET (FP) PO ONE (16:31)
[2023-11-21] MEDS ORDERED: ACETAMINOPHEN 325 MG TABLET (FP) ONE (16:32)
[2023-11-21 16:45] LABS: HEMATOCRIT 43.7 % (35.4-49); HEMOGLOBIN 13.9 G/dL (11.7-16.9); MCH 30.4 pg (25.7-33.7); MCHC 31.9 g/dl (32.0-35.9); MEAN CELL VOLUME 95.5 fl (80-96); MEAN PLT VOLUME 10.3 fl (7.5-11.1); PLATELET COUNT 174.1 10^3/uL (134-434); RBC 4.58 10^6/uL (4.00-5.60); RDW 14.8 % (11.9-15.9); WHITE BLOOD COUNT 6.9 10^3/uL (4.0-10.8)
[2023-11-21 17:04] LABS: PLATELET ESTIMATE ADEQUATE
[2023-11-21 17:06] LABS: ALBUMIN 3.3 g/dl (3.4-5.0); BILIRUBIN,TOTAL 0.5 mg/dl (0.2-1); CALCIUM 8.5 mg/dl (8.5-10.1); CREATININE 0.9 mg/dl (0.6-1.3); POTASSIUM 3.9 mmol/L (3.5-5.1)
[2023-11-21] MEDS ORDERED: ASPIRIN 325 MG TABLET ONE (19:08)
[2023-11-21] MEDS: ASPIRIN 325 MG ENTERIC COATED TABLET (FP) PO ONE (19:29)
[2023-11-21] MEDS ORDERED: DOCUSATE SODIUM 100 MG CAPSULE (FP) PO PRN (19:41)
[2023-11-21] MEDS ORDERED: ACETAMINOPHEN 325 MG TABLET (FP) PO PRN (22:30)
[2023-11-22] MEDS: SODIUM CHLORIDE 0.45% 1,000 ML IV SCH (06:04)
[2023-11-22] MEDS: METOPROLOL TARTRATE 5 MG/5 ML VIAL IVPUSH ONE (06:06)
[2023-11-22] MEDS ORDERED: LEVOTHYROXINE NA 125 MCG TABLET (FP) PO SCH (08:00)
[2023-11-22] MEDS: PIPERACILLIN/TAZOB 2.25 GM 2.25 GM in DEXTROSE 5%-WATER - 50 ML IVPB ONE (08:24)
[2023-11-22 08:52] LABS: MAGNESIUM 2.1 mg/dL (1.8-2.4)
[2023-11-22] MEDS: CARBIDOPA/LEVODOPA 25/100 TABLET (FP) PO SCH (10:02)
[2023-11-22] MEDS: DONEPEZIL HCL 10 MG TABLET (FP) PO SCH (10:02)
[2023-11-22] MEDS: LEVOTHYROXINE NA 125 MCG TABLET (FP) PO SCH (10:02)
[2023-11-22 10:33] LABS: HEMATOCRIT 39.6 % (35.4-49); HEMOGLOBIN 12.8 GM/dL (11.7-16.9); MCH 30.1 pg (25.7-33.7); MCHC 32.2 g/dl (32.0-35.9); MEAN CELL VOLUME 93.3 fl (80-96); MEAN PLT VOLUME 10.1 fl (7.5-11.1); PLATELET COUNT 167 10^3/uL (134-434); RBC 4.25 M/mm3 (4.00-5.60); RDW 14.1 % (11.9-15.9); WHITE BLOOD COUNT 6.5 K/mm3 (4.0-10.0)
[2023-11-22 11:12] LABS: ANISOCYTOSIS 1+; MACROCYTOSIS 0
[2023-11-22] MEDS: RIVASTIGMINE TARTRATE 1.5 MG CAPSULE PO SCH (18:25)
[2023-11-22] MEDS: guaiFENesin/D-METHORPHAN HB 10 ML UNIT-DOSE CUPS PO PRN (22:52)
[2023-11-23] MEDS ORDERED: PHENOL 177 ML SPRAY BOTTLE MM PRN (00:33)
[2023-11-23 02:07] VITALS: RESP 18
[2023-11-23 08:26] LABS: HEMATOCRIT 39.1 % (35.4-49); HEMOGLOBIN 12.2 G/dL (11.7-16.9); MCH 29.9 pg (25.7-33.7); MCHC 31.2 g/dl (32.0-35.9); MEAN CELL VOLUME 95.8 fl (80-96); PLATELET COUNT 181.3 10^3/uL (134-434); RBC 4.08 10^6/uL (4.00-5.60); RDW 14.8 % (11.9-15.9); WHITE BLOOD COUNT 6.3 10^3/uL (4.0-10.8)
[2023-11-23 08:32] LABS: CALCIUM 8.2 mg/dl (8.5-10.1); CREATININE 0.8 mg/dl (0.6-1.3); MAGNESIUM 2.1 mg/dL (1.8-2.4); PHOSPHOROUS 3.2 (2.5-4.9)
[2023-11-24 01:55] VITALS: TEMP 97.5
[2023-11-24 08:25] LABS: HEMATOCRIT 40.3 % (35.4-49); HEMOGLOBIN 12.6 G/dL (11.7-16.9); MCH 30.1 pg (25.7-33.7); MCHC 31.3 g/dl (32.0-35.9); MEAN CELL VOLUME 95.9 fl (80-96); MEAN PLT VOLUME 9.8 fl (7.5-11.1); PLATELET COUNT 183.3 10^3/uL (134-434); RDW 15.8 % (11.9-15.9); WHITE BLOOD COUNT 6.6 10^3/uL (4.0-10.8)
[2023-11-24 09:08] LABS: CALCIUM 8.3 mg/dl (8.5-10.1); CREATININE 0.8 mg/dl (0.6-1.3); POTASSIUM 4.5 mmol/L (3.5-5.1)
[2023-11-24] MEDS: ENOXAPARIN NA (PORCINE) 40 MG/0.4 ML DISP.SYRIN SQ SCH (09:12)
[2023-11-24 09:44] VITALS: BP 122/70; PULSE 102
== END 2023-11-24 11:52 | disposition home or self-care (01) | DRG 309 ==
LOC: FER 15:01 → FM/S 17:28 → OBSVTOIN 11-23 12:25
PROVIDERS: ADMIT Internal Medicine; ATTEND Internal Medicine
DX: I48.91 Unspecified atrial fibrillation (principal); M84.48XA Pathological fracture, other site, initial encounter for fracture; I10 Essential (primary) hypertension; E78.5 Hyperlipidemia, unspecified; E03.9 Hypothyroidism, unspecified; G20.A1 Parkinson's disease without dyskinesia, without mention of fluctuations; F02.80 Dementia in other diseases classified elsewhere, unspecified severity, without behavioral disturbance, psychotic disturbance, mood disturbance, and anxiety; Z86.73 Personal history of transient ischemic attack (TIA), and cerebral infarction without residual deficits; R91.1 Solitary pulmonary nodule; M54.50 Low back pain, unspecified
CPT/HCPCS: 36415; 71250-TC; 72131-TC; 80048; 80053; 83735; 84100; 84439; 84443; 84484; 85025; 85027; 93005; 93306-TC; 97116-GP; 97162-GP; 99285-25; G0378

== ENCOUNTER 2024-01-25 17:38 | Observation (INO) | payer OTHER ==
[2024-01-25 18:18] VITALS: BMI 20.7
[2024-01-25 21:21] LABS: POTASSIUM 4.2 mmol/L (3.5-5.1)
[2024-01-25 21:24] LABS: ALBUMIN 3.4 g/dl (3.4-5.0); BLOOD UREA NITROGEN 25.4 mg/dL (7-18); CALCIUM 9.1 mg/dL (8.5-10.1)
[2024-01-25 21:26] LABS: BASO % 1.2 % (0-2.0); EOS % 5.8 % (0-4.5); HEMOGLOBIN 12.2 GM/dL (11.7-16.9); LYMPH % 22.7 % (8-40); MCH 30.4 pg (25.7-33.7); MEAN CELL VOLUME 94.9 fl (80-96); MEAN PLT VOLUME 10.6 fl (7.5-11.1); MONO % 10.6 % (3.8-10.2); NEUT % 59.7 % (42.8-82.8); PLATELET COUNT 157 10^3/uL (134-434); RBC 4.01 M/mm3 (4.00-5.60); RDW 16.1 % (11.9-15.9); WHITE BLOOD COUNT 6.8 K/mm3 (4.0-10.0)
[2024-01-25 21:27] LABS: CREATININE 0.8 mg/dL (0.55-1.3)
[2024-01-25 21:29] LABS: BILIRUBIN,TOTAL 0.5 mg/dL (0.2-1); TOT PROT 5.6 g/dl (6.4-8.2)
[2024-01-26 04:07] VITALS: RESP 18
[2024-01-26] MEDS ORDERED: ACETAMINOPHEN 1000 MG/100 ML BAG IVPB PRN (05:34)
[2024-01-26] MEDS: CARBIDOPA/LEVODOPA 25/100 TABLET (FP) PO SCH (06:14)
[2024-01-26] MEDS: LEVOTHYROXINE NA 125 MCG TABLET (FP) PO SCH (06:14)
[2024-01-26] MEDS: RIVASTIGMINE 4.6 MG/24 HOURS TRANSDERMAL PATCH TD SCH (09:49)
[2024-01-26] MEDS: ENOXAPARIN NA (PORCINE) 40 MG/0.4 ML DISP.SYRIN SQ SCH (09:49)
[2024-01-26 09:55] LABS: EOS % 7.1 % (0-4.5); HEMATOCRIT 36.4 % (35.4-49); HEMOGLOBIN 11.9 GM/dL (11.7-16.9); LYMPH % 24.4 % (8-40); MCH 30.8 pg (25.7-33.7); MCHC 32.5 g/dl (32.0-35.9); MEAN CELL VOLUME 94.5 fl (80-96); MEAN PLT VOLUME 9.8 fl (7.5-11.1); MONO % 11.1 % (3.8-10.2); NEUT % 56.4 % (42.8-82.8); PLATELET COUNT 149 10^3/uL (134-434); RBC 3.85 M/mm3 (4.00-5.60); RDW 15.7 % (11.9-15.9); WHITE BLOOD COUNT 5.7 K/mm3 (4.0-10.0)
[2024-01-26 10:16] LABS: POTASSIUM 4.2 mmol/L (3.5-5.1)
[2024-01-26 10:28] LABS: ALBUMIN 3.3 g/dl (3.4-5.0); CALCIUM 8.6 mg/dL (8.5-10.1)
[2024-01-26 10:29] LABS: BLOOD UREA NITROGEN 27.2 mg/dL (7-18); MAGNESIUM 2.3 mg/dL (1.8-2.4)
[2024-01-26 10:31] LABS: CREATININE 0.9 mg/dL (0.55-1.3)
[2024-01-26 10:32] LABS: PHOSPHOROUS 3.7 mg/dL (2.5-4.9)
[2024-01-26 10:33] LABS: BILIRUBIN,TOTAL 0.6 mg/dL (0.2-1); TOT PROT 5.7 g/dl (6.4-8.2)
[2024-01-26] MEDS ORDERED: IBUPROFEN 400 MG TABLET (FP) PO PRN (18:52)
[2024-01-26] MEDS: DONEPEZIL HCL 10 MG TABLET (FP) PO SCH (21:20)
[2024-01-29 10:53] VITALS: BP 153/99; PULSE 50; TEMP 97.5
== END 2024-01-29 14:27 ==
LOC: JER 17:38 → JERBED 01-26 01:09 → J6S 01-26 04:21
PROVIDERS: ADMIT Internal Medicine; ATTEND Internal Medicine
PROC: 3E013GC Introduction of Other Therapeutic Substance into Subcutaneous Tissue, Percutaneous Approach (ICD-10-PCS; principal; 2024-01-26)
DX: Z04.3 Encounter for examination and observation following other accident (principal); R26.2 Difficulty in walking, not elsewhere classified; M25.571 Pain in right ankle and joints of right foot; M25.572 Pain in left ankle and joints of left foot; I10 Essential (primary) hypertension; E78.5 Hyperlipidemia, unspecified; G20.A1 Parkinson's disease without dyskinesia, without mention of fluctuations; F02.80 Dementia in other diseases classified elsewhere, unspecified severity, without behavioral disturbance, psychotic disturbance, mood disturbance, and anxiety; E03.9 Hypothyroidism, unspecified; F32.A Depression, unspecified; Z99.89 Dependence on other enabling machines and devices; Z86.73 Personal history of transient ischemic attack (TIA), and cerebral infarction without residual deficits; Z86.16 Personal history of COVID-19
CPT/HCPCS: 36415; 73610-TC-RT-FY; 73630-TC-RT-FY; 80053; 83735; 84100; 85025; 86431; 93005; 93010; 96372; 97116-GP; 97161-GP; 99285-25; G0378